=== PATIENT | male | born 1985 | race Caucasian/White ===

== ENCOUNTER 2020-06-10 13:31 | Emergency (ER) | payer OTHER ==
[2020-06-10] MEDS ORDERED: PENICILLIN G BENZATHINE 2,400,000 UNIT/4 ML PFS IM ONE (13:44)
[2020-06-10 13:51] VITALS: BP 120/69; PULSE 77; TEMP 98.2; BMI 24.2
[2020-06-10] MEDS ORDERED: PENICILLIN G BENZATHINE 1,200,000 UNIT/2 ML PFS IM ONE (13:53)
== END 2020-06-10 15:18 | disposition home or self-care (01) ==
LOC: FER 13:31
DX: A53.9 Syphilis, unspecified (principal); A60.01 Herpesviral infection of penis
CPT/HCPCS: 99284-25

== ENCOUNTER 2020-06-17 17:53 | Emergency (ER) | payer OTHER ==
[2020-06-17 18:11] VITALS: BP 126/85; PULSE 69; TEMP 97.6; BMI 23.3
[2020-06-17] MEDS ORDERED: PENICILLIN G BENZATHINE 2,400,000 UNIT/4 ML PFS IM ONE (18:19)
[2020-06-17] MEDS ORDERED: PENICILLIN G BENZATHINE 1,200,000 UNIT/2 ML PFS IM ONE (18:26)
== END 2020-06-17 18:50 | disposition home or self-care (01) ==
LOC: FER 17:53
DX: A53.9 Syphilis, unspecified (principal)
CPT/HCPCS: 99284-25

== ENCOUNTER 2020-06-25 16:57 | Emergency (ER) | payer OTHER ==
[2020-06-25 17:04] VITALS: BP 116/78; PULSE 73; TEMP 99.2; BMI 23.3
[2020-06-25] MEDS ORDERED: PENICILLIN G BENZATHINE 2,400,000 UNIT/4 ML PFS IM ONE (17:06)
== END 2020-06-25 17:26 | disposition home or self-care (01) ==
LOC: FER 16:57
DX: A53.9 Syphilis, unspecified (principal)
CPT/HCPCS: 99284-25